=== PATIENT | female | born 2000 | race African-American/Black ===

== ENCOUNTER 2022-12-27 12:42 | Emergency (ER) | payer OTHER, SELFPAY ==
[2022-12-27] VITALS (8 sets, daily range): BP systolic 118–126; BP diastolic 87–102; PULSE 80–81; RESP 16; TEMP 36.2; O2SAT 99–100; BMI 32.1
--- NOTE | 2022-12-27 12:45 | CM.ED ---
TESSY received call from Fidelina Santiago at [facility]. Fidelina reports she is sending patient to the ED. Patient was seeing [facility], a program through [employer], however patient had told the counselor that she wrote a suicide note last week and thus [facility] wanted the [facility] to follow up with patient. Patient has previous suicide attempt with taking 4 OTC pain medication. Patient voiced that she thought taking 4 OTC pain medication would be lethal. Patient has thoughts of cutting herself in the shower to end her life or to step in front of traffic on [address] to get hit. Patient has been alone and isolating. Patient reports she does not think she will live past age 23, and she is age 22 currently. Patient has [employer] insurance. Patient's roommate will be off campus this weekend. Patient said that she has friends but does not feel she can talk to them. Patient is concerned about finances but voiced if finances were not an issues she feels she needs inpatient psych. 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
--- NOTE | 2022-12-27 12:54 | EKG12_ITS ---
Test Reason : SI Blood Pressure : / mmHG Vent. Rate : 083 BPM Atrial Rate : 083 BPM P-R Int : 164 ms QRS Dur : 076 ms QT Int : 356 ms P-R-T Axes : 063 066 066 degrees QTc Int : 418 ms Normal sinus rhythm Normal ECG No previous ECGs available Confirmed by BRIAN MOTT, STEPHAN ([id number]), acquisitions editor LEVI ROBLEDO ([id number]) on 12/31/2022 7:45:17 AM Referred By: Confirmed By:STEPHAN TORRES MD
--- NOTE | 2022-12-27 13:00 | EX.ED.VIS.PS ---
HPI <Dr. Jabari Meng MD - Last Filed: 12/28/22 07:06> HPI - Psych History of Present Illness Chief Complaint: Suicidal Detail of Chief Complaint: Pression with suicidal ideation Informant: patient Onset/Context/Timing Context: Sudden Onset Timing: Continuous Current Severity: Severe Maximum Severity: Severe Worsened by: Situational factors and Alcohol intoxication Associated Symptoms Associated Symptoms - Psych: Positive for Depressed, Change in Eating, Change in sleeping, Decreased Interest and Suicidal Thoughts; Negative for Flight of Ideas, Increased activity, Pressured Speech, Agitated, Angry, Hostile, Threatening, Confusion, Paranoia, Visual Hallucinations or Auditory Hallucinations Specific plan (suicidal thought): Lethal laceration in the shower or walk in front of a car Narrative Narrative: Patient is a 22-year-old female who is a [employer] student. She presents because of suicidal ideation. She has lethal intent. She plans to either walk in front of a car or cut herself in the shower so she bleeds out. She has history of prior attempts. status unknown. Patient states she will not live to 23 years of age. Prior similar symptoms: Yes Recent Illness/Hospitalization: No PFSH <Dr. Jabari Meng MD - Last Filed: 12/28/22 07:06> PFSH Medical History Depression Home Medications NK 12/27/22 [History Last Taken Unknown] Allergy/AdvReac Type Severity Reaction Status Date / Time No Known Allergies Allergy Verified 12/27/22 12:48 Social History (Updated 12/27/22 @ 13:[address] Jabari Meng MD) household members: family Smoking Status: Never smoker ROS <Dr. Jabari Meng MD - Last Filed: 12/28/22 07:06> ROS ED Constitutional Constitutional ED: Denies chills, subjective, sweats or weight loss Eyes Eyes: Denies blurry vision, change in vision or diplopia ENT ENT ED: Denies ear pain or rhinorrhea Cardiovascular Cardiovascular: Denies chest pain or palpitations Respiratory/Chest Respiratory/Chest: Denies cough, dyspnea or dyspnea on exertion Gastrointestinal Gastrointestinal: Denies abdominal pain, diarrhea, nausea or vomiting Genitourinary Genitourinary ED: Denies dysuria, hematuria or urinary frequency Musculoskeletal Musculoskeletal: Denies arthralgias, back pain, myalgias or neck pain Integumentary Denies Abrasions or rash Neurologic Neurologic: Denies headache(s), paresthesias or weakness Psychiatric Psychiatric: Reports anxiety, depression, suicidal ideation and suicidal thoughts Endocrine Endocrinology: Denies polydipsia, polyphagia or polyuria Hematologic/Lymphatic Hematologic/Lymphatic: Denies easy bleeding, easy bruising or lymphadenopathy EXAM <Dr. Jabari Meng MD - Last Filed: 12/28/22 07:06> Physical Exam Const Vital Signs: 12/27/22 12:45 12/27/22 15:10 12/27/22 16:19 Temperature 97.1 F L Temperature Source Temporal Pulse Rate 80 Respiratory Rate 16 16 16 Blood Pressure 118/102 H Blood Pressure Mean 107 Pulse Ox 100 Oxygen Delivery Method Room Air 12/27/22 17:33 12/27/22 18:52 12/27/22 21:43 Temperature Temperature Source Pulse Rate 81 Respiratory Rate 16 16 16 Blood Pressure 126/87 H Blood Pressure Mean 100 Pulse Ox 99 Oxygen Delivery Method Room Air 12/27/22 22:12 12/27/22 22:57 Temperature Temperature Source Pulse Rate 81 Respiratory Rate 16 16 Blood Pressure 126/87 H Blood Pressure Mean 100 Pulse Ox 99 Oxygen Delivery Method Positive well nourished, well developed and obese Constitutional Narrative: Patient appears slightly distraught. Has a depressed affect. She voices suicidal thoughts and future plan. General Appearance ED: well developed; Negative for pallor Nutritional Appearance: obese HEENT Reports moist mucous membranes normocephalic and atraumatic Eyes PERRL and EOMs intact bilaterally General Eye ED: Negative for pale conjunctiva or scleral icterus Neck no lymphadenopathy, supple and no JVD Resp normal respiratory effort Cardio S1 normal heart sound and S2 normal heart sound Rate: regular rate GI non-tender, non-distended and no masses Auscultation: normoactive bowel sounds Palpation: soft Back/Spine no CVA tenderness Back/Spine Narrative: Inspection of the back is normal. Neuro oriented x3, CN's II-XII intact bilaterally and no sensory deficits noted Pao Coma Scale: document GCS findings Spontaneous Obeys Commands Oriented 15 Sensorium / Orientation: alert Psych mental status grossly normal Psych Narrative: Patient is not forthcoming with information. Patient purposely left her phone at the dormitory Appearance: grossly normal Attitude: calm Activity / Motor Behavior: appropriate eye contact Speech: soft Mood & Affect: flat affect Thought Process: normal thought process Thought Content: suicidality Attention / Concentration: attention grossly intact and concentration grossly intact Memory / Cognition: memory grossly intact Insight: poor Judgement: poor Skin General Skin Exam: Negative for jaundice or pallor Rashes: no rashes Trauma: abrasion <Barrett Herbert MD - Last Filed: 12/27/22 21:12> Physical Exam Const Vital Signs: 12/27/22 12:45 12/27/22 15:10 12/27/22 16:19 Temperature 97.1 F L Temperature Source Temporal Pulse Rate 80 Respiratory Rate 16 16 16 Blood Pressure 118/102 H Blood Pressure Mean 107 Pulse Ox 100 Oxygen Delivery Method Room Air 12/27/22 17:33 12/27/22 18:52 12/27/22 21:43 Temperature Temperature Source Pulse Rate 81 Respiratory Rate 16 16 16 Blood Pressure 126/87 H Blood Pressure Mean 100 Pulse Ox 99 Oxygen Delivery Method Room Air 12/27/22 22:12 12/27/22 22:57 Temperature Temperature Source Pulse Rate 81 Respiratory Rate 16 16 Blood Pressure 126/87 H Blood Pressure Mean 100 Pulse Ox 99 Oxygen Delivery Method Neuro Pao Coma Scale: document GCS findings 15 MDM <Dr. Jabari Meng MD - Last Filed: 12/28/22 07:06> MDM MDM Narrative Medical decision making narrative: Patient admits she is depressed with suicidal [place] thoughts and future intent. Plan is lethal. Work-up was undertaken to rule out metabolic infectious causes. Also to facilitate inpatient psychiatric care. Appropriate blood work was obtained as well as COVID and test. Case management was consulted to facilitate transfer to psychiatric hospital. Lab Data Labs: Laboratory Results - last 24 hr 12/27/22 12/27/22 12/27/22 13:30 14:00 14:00 WBC 6.2 RBC 4.55 Hgb 13.3 Hct 40.2 MCV 88.4 MCH 29.2 MCHC 33.1 RDW Std Deviation 40.8 RDW Coeff of Marcos 12.6 Plt Count 301 MPV 9.7 Immature Gran % (Auto) 0.200 Neut % (Auto) 65.6 Lymph % (Auto) 26.5 [place] % (Auto) 7.1 Eos % (Auto) 0.3 Baso % (Auto) 0.3 Absolute Neuts (auto) 4.1 Absolute Lymphs (auto) 1.64 Nucleated RBC % 0 Sodium 141 Potassium 3.8 Chloride 112 H Carbon Dioxide 23.0 Anion Gap 6 BUN 14 Creatinine 0.70 Estim Creat Clear Calc 135.09 Est GFR (MDRD) Af Amer 136 Est GFR (MDRD) Non-Af 113 BUN/Creatinine Ratio 20.1 H Glucose 122 H Calcium 9.2 Serum , Qual Urine Opiates Screen NEGATIVE Urine Methadone Screen NEGATIVE Ur Barbiturates Screen NEGATIVE Ur Phencyclidine Scrn NEGATIVE Ur Amphetamines Screen NEGATIVE MDMA (Ecstasy) Screen NEGATIVE U Benzodiazepines Scrn NEGATIVE Urine Cocaine Screen NEGATIVE U Cannabinoids Screen NEGATIVE Ur Drug Screen Comment Ethyl Alcohol 12/27/22 12/27/22 14:00 14:00 WBC RBC Hgb Hct MCV MCH MCHC RDW Std Deviation RDW Coeff of Marcos Plt Count MPV Immature Gran % (Auto) Neut % (Auto) Lymph % (Auto) [place] % (Auto) Eos % (Auto) Baso % (Auto) Absolute Neuts (auto) Absolute Lymphs (auto) Nucleated RBC % Sodium Potassium Chloride Carbon Dioxide Anion Gap BUN Creatinine Estim Creat Clear Calc Est GFR (MDRD) Af Amer Est GFR (MDRD) Non-Af BUN/Creatinine Ratio Glucose Calcium Serum , Qual NEGATIVE Urine Opiates Screen Urine Methadone Screen Ur Barbiturates Screen Ur Phencyclidine Scrn Ur Amphetamines Screen MDMA (Ecstasy) Screen U Benzodiazepines Scrn Urine Cocaine Screen U Cannabinoids Screen Ur Drug Screen Comment Ethyl Alcohol 3.0 <Barrett Herbert MD - Last Filed: 12/27/22 21:12> MDM MDM Narrative Medical decision making narrative: Patient admits she is depressed with suicidal [place] thoughts and future intent. Plan is lethal. Work-up was undertaken to rule out metabolic infectious causes. Also to facilitate inpatient psychiatric care. Appropriate blood work was obtained as well as COVID and test. Case management was consulted to facilitate transfer to psychiatric hospital. I reviewed the patient's laboratory work, and it was felt that she was medically cleared for evaluation. Dr. Herbert: Patient endorsed to me by Dr. Meng to ensure transfer to a psychiatric facility. I was informed by case management that she has been accepted by Dr. Bentley at [facility]. She has not required any medication here currently and remains medically stable. Disposition is transfer in stable condition. Lab Data Attestation: I reviewed the patient's lab results. Labs: Laboratory Results - last 24 hr 12/27/22 12/27/22 12/27/22 13:30 14:00 14:00 WBC 6.2 RBC 4.55 Hgb 13.3 Hct 40.2 MCV 88.4 MCH 29.2 MCHC 33.1 RDW Std Deviation 40.8 RDW Coeff of Marcos 12.6 Plt Count 301 MPV 9.7 Immature Gran % (Auto) 0.200 Neut % (Auto) 65.6 Lymph % (Auto) 26.5 [place] % (Auto) 7.1 Eos % (Auto) 0.3 Baso % (Auto) 0.3 Absolute Neuts (auto) 4.1 Absolute Lymphs (auto) 1.64 Nucleated RBC % 0 Sodium 141 Potassium 3.8 Chloride 112 H Carbon Dioxide 23.0 Anion Gap 6 BUN 14 Creatinine 0.70 Estim Creat Clear Calc 135.09 Est GFR (MDRD) Af Amer 136 Est GFR (MDRD) Non-Af 113 BUN/Creatinine Ratio 20.1 H Glucose 122 H Calcium 9.2 Serum , Qual Urine Opiates Screen NEGATIVE Urine Methadone Screen NEGATIVE Ur Barbiturates Screen NEGATIVE Ur Phencyclidine Scrn NEGATIVE Ur Amphetamines Screen NEGATIVE MDMA (Ecstasy) Screen NEGATIVE U Benzodiazepines Scrn NEGATIVE Urine Cocaine Screen NEGATIVE U Cannabinoids Screen NEGATIVE Ur Drug Screen Comment Ethyl Alcohol 12/27/22 12/27/22 14:00 14:00 WBC RBC Hgb Hct MCV MCH MCHC RDW Std Deviation RDW Coeff of Marcos Plt Count MPV Immature Gran % (Auto) Neut % (Auto) Lymph % (Auto) [place] % (Auto) Eos % (Auto) Baso % (Auto) Absolute Neuts (auto) Absolute Lymphs (auto) Nucleated RBC % Sodium Potassium Chloride Carbon Dioxide Anion Gap BUN Creatinine Estim Creat Clear Calc Est GFR (MDRD) Af Amer Est GFR (MDRD) Non-Af BUN/Creatinine Ratio Glucose Calcium Serum , Qual NEGATIVE Urine Opiates Screen Urine Methadone Screen Ur Barbiturates Screen Ur Phencyclidine Scrn Ur Amphetamines Screen MDMA (Ecstasy) Screen U Benzodiazepines Scrn Urine Cocaine Screen U Cannabinoids Screen Ur Drug Screen Comment Ethyl Alcohol 3.0 Discharge Plan Triage Chief Complaint: Suicidal ED Provider: Jabari Meng Dx/Rx/DC Orders Clinical Impression: Depression with suicidal ideation Prescriptions: No Action NK Primary Care Provider: Care Physician,No Primary Referrals: NOT,DEFINED [Non-Staff] - Disposition Disposition: Psychiatric Hospital or Unit Discharge Location: [facility] Discharge Date/Time: 12/28/22 00:00
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
[2022-12-27 14:18] LABS: Absolute Lymphocyte Count 1.64 X10^3/uL (0.83-4.51); Absolute Neutrophil Count 4.1 X10^3/uL (2.0-7.7); Basophil# 0.02 X10^3/uL; Basophil% 0.3 % (0-1); Eosinophil# 0.02 X10^3/uL; Eosinophils% 0.3 % (0-5); Hematocrit 40.2 % (37-47); Hemoglobin 13.3 g/dL (12.0-15.0); Lymphocyte # 1.64 X10^3/ul (0.83-4.51); Lymphocyte % 26.5 % (19-41); Mean Corp Hgb Conc 33.1 g/dL (32-36); Mean Corpuscular Hgb 29.2 pg (27.0-32.0); Mean Corpuscular Volume 88.4 fL (81-99); Mean Platelet Vol. 9.7 fl (6.2-12.0); Monocyte# 0.44 X10^3/uL; Monocyte% 7.1 % (0-10); NRBC Flagged by Analyzer 0 % (0-5); Neutrophil # 4.06 X10^3/uL (2.7-7.7); Neutrophil % 65.6 % (47-70); Platelet Count 301 K/mm3 (150-450); RBC Distribution Width CV 12.6 % (11.6-14.6); RBC Distribution Width SD 40.8 fl (35.1-43.9); Red Blood Count 4.55 M/mm3 (4.2-5.4); White Blood Count 6.2 K/mm3 (4.4-11.0)
[2022-12-27 14:19] LABS: Amphetamine Urine VISTA NEGATIVE (<1000 ng/mL); Barbiturate Urine VISTA NEGATIVE (< 200 ng/mL); Benzodiazepine Urine VISTA NEGATIVE (< 200 ng/mL); Cocaine Urine VISTA NEGATIVE (< 300 ng/mL); Ecstacy Urine VISTA NEGATIVE (< 500 ng/mL); Methadone Urine VISTA NEGATIVE (< 300 ng/mL); PCP Urine VISTA NEGATIVE (< 25 ng/mL); THC Urine VISTA NEGATIVE (< 50 ng/mL); Vista UDS pH Range 5
[2022-12-27 14:27] LABS: Internal QC Validated? YES +Cl - CLEAR BKGD; Pregnancy, Serum, hCG Quali. NEGATIVE Negative
[2022-12-27 14:30] LABS: Anion Gap 6 (5-15); BUN 14 mg/dL (7-18); BUN/Creat Ratio 20.1 RATIO (10-20); Calcium,Total 9.2 mg/dL (8.5-10.1); Chloride 112 mmol/L (98-107); EST Glomerular Filtration Rate 113 mL/min (>60); Est Glom Filt Rate - Afr Amer 136 mL/min (>60); Estimated Creatinine Clearance 135.09 ml/min; Glucose 122 mg/dL (74-106); Potassium 3.8 mmol/L (3.5-5.1); Sodium Level 141 mmol/L (136-145)
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
--- NOTE | 2022-12-27 15:05 | CM.ED ---
Addendum entered by Radha Scanlon 12/27/22 16:30: TESSY has called [facility] and inquired about patient's suicide note. TESSY spoke to Justine and she said that she needs to check on the status of getting the suicide note. TESSY called Justine at [facility] and requested a clearer copy of patient's insurance. Justine sent it to this expert medical writer via email. TESSY received call from Tammi at [facility]. She inquired if we were able to verify insurance. TESSY spoke to Danyell in registration. [facility] student insurance is never able to be verified. TESSY updated Tammi. TESSY spoke to Tammi. Tammi stated that they can NOT accept patient as they can not verify her insurance. TESSY called Tammi at [facility] and stated that she was told that they can not accept patient due to insurance. TESSY called [facility] and they have beds and can review the referral. TESSY called [facility]. They are at capacity and can not take patient. TESSY called [facility]. They will review the chart. TESSY faxed referrals to [facility] and [facility]. Radha SUÁREZ Original Note: Justine from [facility] stated that patient had told Fidelina Santiago at [facility] that the suicide note was NOT on her phone and it was a letter. TESSY faxed referral to [facility] and [facility] for review. Radha SUÁREZ
--- NOTE | 2022-12-27 20:00 | CM.ED ---
SW met with patient and the assistant cook at the [facility], Gabby ([phone]). Patient gave verbal consent for this insurance underwriter to speak to her in the presence of the [facility] staff. SW discussed how earlier this insurance underwriter had indicated concern for patient and that she needed to be placed. Patient asked if she could go to the student center for a couple of days and pediatric social worker said no. SW discussed safety concerns. SW provided emotional support. Patient gave consent for Gabby from the [facility] to be updated. SW received call from Nury at [facility]. They can not get patient's insurance to verify and it's not coming up so subsequently patient can not go to [facility] without insurance. Patient declined at [facility]. Radha SUÁREZ
--- NOTE | 2022-12-27 20:14 | CASEMGMT ---
TESSY called [facility] and spoke to Justin,off site product support sales representative regarding patient and he transferred this public relations writer to another individual who stated that they are waiting for the provider to call back. TESSY was advised that this public relations writer will be updated as soon as they have a determination. TESSY called [facility] and spoke to Sylvia. Sylvia said that patient has college insurance so Ofe, who comes in tomorrow at 7am, will work on that and make calls in the morning. TESSY provided Sylvia with the number for crisis ([phone]) TESSY updated Carmelina at [facility] regarding patient. TESSY faxed referral to Carmelina at [facility]. Radha SUÁREZ
--- NOTE | 2022-12-27 21:13 | CM.ED ---
Addendum entered by Radha Scanlon 12/27/22 21:19: TESSY updated machine operator hop worker, Carmelina. Radha SUÁREZ Original Note: TESSY received call from Sukumar at [facility]. Sukumar said that they could accept patient. TESSY faxed pink slip to [facility]. TESSY called [facility] and advised that placement had been secured. TESSY called [facility] and advised that placement had been secured. TESSY called Sukumar at [facility]. Accepting MD is Kennedi. [address]. RN to RN is [phone]. TESSY updated patient that she is going to [facility] and transport will be tonight between 10-10:30pm. Patient gave consent for this typewriter tester to update [facility] staff, Gabby. TESSY updated Gabby from [facility] and advised pataient is leaving at 10-10:30pm city secretary arranged for transport for 10-10:30pm Plan: [facility] Radha SUÁREZ
== END 2022-12-28 ==
PROVIDERS: Emergency Provider Emergency Medicine; Visit Provider Emergency Medicine
DX: F32.A Depression, unspecified (principal); F10.129 Alcohol abuse with intoxication, unspecified; R45.851 Suicidal ideations; E66.9 Obesity, unspecified
CPT/HCPCS: 80048; 80307; 82077; 84703; 85025; 87811; 93005; 99285